=== PATIENT | male | born 1990 | race Caucasian/White ===

== ENCOUNTER 2021-10-04 01:43 | Emergency (ER) | payer OTHER, SELFPAY ==
[2021-10-04 01:49] VITALS: BP 124/75; PULSE 122; RESP 18; TEMP 36.9; O2SAT 96; BMI 21.5
--- NOTE | 2021-10-04 01:57 | XRR_ITS ---
PROCEDURE INFORMATION: Exam: XR Lumbosacral Spine Exam date and time: 10/04/2021 1:57 AM Age: 31 years old Clinical indication: Low back pain; Additional info: Low back pain, denies injury TECHNIQUE: Imaging protocol: XR of the lumbosacral spine. Views: 2 or 3 views. COMPARISON: CR Abdomen 2 views [id number] 10/09/2014 7:52 AM FINDINGS: Bones/joints: There is normal vertebral body alignment. There are normal vertebral body heights. Disc spaces are symmetric and maintained. No fracture. Soft tissues: Unremarkable. Gastrointestinal tract: There is moderate amount of formed stool in the colon without bowel dilation. XR/XR lumbar spine 2-3V* [id number] IMPRESSION: 1. No fracture. 2. Moderate constipation.
--- NOTE | 2021-10-04 01:59 | ED_ITS ---
HPI - Back Pain/Injury General: Chief Complaint: Back Pain/Injury Stated Complaint: Lower back pain, legs going numb Time Seen by Provider: 10/04/21 01:58 Source: patient Mode of arrival: ambulatory Limitations: no limitations History of Present Illness: HPI Narrative: 31-year-old male states that he has been having low back pain over the last 12 hours. He states it is mainly in the right lower back and radiates down his right leg but has some pain that radiates down both legs states at times he had some very slight numbness denies any bowel or bladder incontinence but some low-grade fevers along with body aches. Denies any recent injuries he denies any drug use. Associated symptoms: Reports chills; Deny abdominal pain, dysuria, nausea or vomiting Review of Systems Const: Reports: chills and body aches Eyes: Denies: blurry vision or eye discomfort ENMT: Denies: throat pain or dental pain Card: Denies: chest pain Resp: Denies: dyspnea GI: Denies: abdominal pain, nausea, vomiting or diarrhea : Denies: dysuria Musc: Reports: back pain Skin/Breast: Denies: rash Neuro: Denies: headache(s) Psych: Denies: depression Adrian/Lymph: Denies: easy bruising All/Imm: Denies: urticaria PFSH ED PFSH: Social History Smoking and tobacco status: never smoked Physical Exam Const: COMMON NORMALS: no acute distress, patient oriented x3 and healthy appearing HENMT: COMMON NORMALS: normocephalic and atraumatic HEAD & SCALP: normocephalic and atraumatic Eye: COMMON NORMALS: Equal, round and reactive pupils present and EOMs intact bilaterally PUPIL: Yes Equal, round and reactive pupils present Neck/C-Spine: COMMON NORMALS: full ROM and supple Chest: COMMONS NORMALS: normal inspection of the chest and normal palpation of entire chest wall Resp: COMMON NORMALS: normal respiratory effort, No retractions, No use of accessory muscles and clear to auscultation bilaterally AUSCULTATION: clear to auscultation bilaterally Cardio: COMMON NORMALS: regular rate, regular rhythm and No murmurs present (Cardio) RATE: regular rate RHYTHM: regular rhythm GI: COMMON NORMALS: Normal to inspection, nondistended, normoactive bowel sounds present, Soft to palpation, non-tender and no masses PALPATION: Yes Soft to palpation Back/Pelvis: OTHER: Paraspinal lumbar tenderness worse on the right no midline tenderness no saddle anesthesia no decreased strength of lower extremities Extremity: COMMON NORMALS: normal to inspection and full ROM Neuro: COMMON NORMALS: patient oriented x3, moves all extremities and no focal motor deficits Psych: COMMON NORMALS: mental status grossly normal, Normal thought process present and cooperative THOUGHT PROCESS: Normal thought process present Skin: COMMON NORMALS: no rashes or lesions noted and no wounds GENERAL SKIN EXAM: no rashes or lesions noted Course Vital Signs: Vital signs: Vital Signs Temperature 98.5 F 10/04/21 01:49 Pulse Rate 122 H 10/04/21 01:49 Respiratory Rate 16 10/04/21 02:10 Blood Pressure 124/75 10/04/21 01:49 Pulse Oximetry 96 10/04/21 01:49 MDM - Back Pain/Injury MDM Narrative: Medical decision making narrative: Patient presents here with low back pain likely muscular with sciatica he has no signs of cord compression or epidural abscess patient's x-ray here is normal he is stable for discharge is to follow-up with PCP and return if worsening. Will prescribe him Naprosyn Robaxin and steroid. Lab Data: Labs: Lab Results 10/04/21 10/04/21 02:00 02:00 Urine Color Yellow (Yellow) Urine Appearance Clear (CLEAR) Urine pH 5 (5-7) Ur Specific Gravit y 1.030 (1.005-1.030) Urine Protein Neg (Negative) Urine Glucose (UA) Norm (Normal) Urine Ketones 1+ H (Negative) Urine Blood Neg (Negative) Urine Nitrate Negative (Negative) Urine Bilirubin Neg (Negative) Urine Urobilinogen 1 mg/dL H mg/dL (Negative) Ur Leukocyte Kylie ase Negative (Negative) SARS-CoV-2 Ag (Rap id) Negative (Negative) Discharge Plan Discharge Patient Disposition: Home Clinical Impression: Low back pain Qualifiers: Chronicity: acute Back pain laterality: right Sciatica presence: with sciatica Sciatica laterality: sciatica of right side Qualified Code(s): M54.41 - Lumbago with sciatica, right side Condition: Stable Prescriptions: New methocarbamol 750 mg tablet 750 mg PO Q6H PRN (Reason: spasms) Qty: 20 RF: 0 Naprosyn 500 mg tablet 500 mg PO BID PRN (Reason: pain) Qty: 20 RF: 0 Medrol (Jacob) 4 mg tablets,dose pack See Rx Instructions .ROUTE .COMPLEX Qty: 21 RF: 0 No Action amoxicillin 400 mg/5 mL suspension for reconstitution 800 mg PO Q12H 10 Days Qty: 200 RF: 0 Discharge Orders: Discharge ED (Routine); Ordered 10/04/21 Ordered By: Shruthi Bell Discharge Diet: Advance as tolerated Discharge Activity: Resume usual activity Patient Instructions: Acute Low Back Pain (ED) Coding Level of Care Code ED Librarian Special Collections for Kobe Fwd Exam Comprehensive
[2021-10-04] MEDS: dexamethasone 10 mg/mL INJ IM (02:09)
[2021-10-04 02:10] VITALS: RESP 16
[2021-10-04] MEDS: morphine 4 mg/mL SDV 1 mL IM (02:10)
[2021-10-04 02:17] LABS: Add Urine Microscopic? NO; Charge for UA Resulting for Rev
[2021-10-04 02:20] LABS: Bilirubin Urine Neg (Negative); Blood Urine Neg (Negative); Glucose Urine UA Norm (Normal); Ketones Urine 1+ (Negative); Leukocyte Esterase Urine Negative (Negative); Nitrate Urine Negative (Negative); Protein Urine Neg (Negative); Urine Appearance Clear (CLEAR); Urine Color Yellow (Yellow); Urobilinogen Urine 1 mg/dL (Negative); pH Urine 5 (5-7)
[2021-10-04 02:36] LABS: SARS Covid-2 Antigen Negative (Negative)
[2021-10-04 02:57] VITALS: BP 110/77; PULSE 78; RESP 16; O2SAT 98
== END 2021-10-04 02:58 | disposition home or self-care (01) ==
PROVIDERS: Emergency Provider Emergency Medicine
DX: M54.41 Lumbago with sciatica, right side (principal); Z20.822 Contact with and (suspected) exposure to COVID-19
CPT/HCPCS: 72100; 81003; 87426; 96372; 99283; J1100; J2270

== ENCOUNTER 2024-03-06 19:34 | Emergency (ER) | payer SELFPAY ==
[2024-03-06 20:34] VITALS: BP 148/82; PULSE 64; RESP 18; TEMP 37; O2SAT 98; BMI 25.9
[2024-03-06 21:03] VITALS: PULSE 72; O2SAT 100
[2024-03-06] MEDS: HYDROcodone-APAP 7.5-325 mg/15 mL UDC 7.5 ML PO (21:19)
--- NOTE | 2024-03-06 21:30 | ED_ITS ---
HPI - Dental/Oral General: Chief complaint: Dental/Oral Stated complaint: lower left side pain Time Seen by Provider: 03/06/24 20:56 Source: patient Mode of arrival: ambulatory Limitations: no limitations History of Present Illness: Patient is a 33-year-old male presenting to the emergency department complaining of left lower dental pain onset past few days. Patient was diagnosed with a dental abscess yesterday and started on amoxicillin and steroids, but states Tylenol has not been controlling his pain. He does note in the past he has had dental abscesses that Tylenol usually works for. States he is just here for some extra pain control. Denies any fever, throat swelling/closing, or any other concerning symptoms at this time. He states he has an appointment with his dentist and once he gets insurance he is having all of his teeth removed. Onset (ago): day(s) Duration: constant Severity: severe Relieving factors: nothing Context: history of dental caries and poor dental care Associated symptoms: Denies ear or mastoid pain or fever(s) Review of Systems General: Reports: 10 or more systems reviewed and unremarkable except in HPI and below Const: Denies: fever(s), chills or fatigue Eyes: Denies: change in vision ENMT: Reports: dental pain; Denies: throat pain, ear or mastoid pain or nasal discharge Card: Denies: chest pain, palpitations, swelling of feet/ankles or lightheadedness Resp: Denies: dyspnea, productive cough or wheezing GI: Denies: abdominal pain, nausea, vomiting, diarrhea or constipation : Denies: flank pain, difficulty urinating, dysuria or urinary frequency Musc: Denies: neck pain, back pain or joint pain Skin/Breast: Denies: rash Neuro: Denies: headache(s), numbness in extremities or weakness in extremities PFSH ED PFSH: Medical History Dental abscess Dental caries associated with enamel hypomineralization Social History Smoking and tobacco/nicotine status: never used tobacco/nicotine Physical Exam Const: COMMON NORMALS: no acute distress and no limitations GENERAL APPEARANCE: cooperative, comfortable and well developed ORIENTATION/CONSCIOUSNESS: Yes awake HENMT: COMMON NORMALS: normocephalic, atraumatic and hearing grossly normal bilaterally HEAD & SCALP: normocephalic and atraumatic TEETH & GINGIVA: Yes caries, Yes multiple restorations and Yes poor dentition THROAT: posterior oropharynx normal and uvula midline OTHER: Soft tissue swelling noted to left lower face, is moderately tender to palpation Eye: COMMON NORMALS: Equal, round and reactive pupils present, EOMs intact bilaterally and conjunctivae normal CONJUNCTIVA: Yes conjunctivae normal PUPIL: Yes Equal, round and reactive pupils present Neck/C-Spine: COMMON NORMALS: full ROM, supple and no JVD Resp: COMMON NORMALS: normal respiratory effort, No retractions, No use of accessory muscles and clear to auscultation bilaterally AUSCULTATION: clear to auscultation bilaterally Cardio: COMMON NORMALS: no JVD, regular rate, regular rhythm, No clicks present (Cardio), No murmurs present (Cardio) and No rub (Cardio) RATE: regular rate RHYTHM: regular rhythm Skin: COMMON NORMALS: no rashes or lesions noted GENERAL SKIN EXAM: no rashes or lesions noted Course Vital Signs: Vital signs: Vital Signs Temperature 98.6 F 03/06/24 20:34 Pulse Rate 72 03/06/24 21:03 Respiratory Rate 18 03/06/24 20:34 Blood Pressure 148/82 03/06/24 20:34 Pulse Oximetry 100 03/06/24 21:03 Oxygen Delivery Me thod Room Air 03/06/24 21:03 MDM - Dental/Oral Medical Decision Making Patient began therapy for dental abscess yesterday with steroids and antibiotics. States pain is gotten to the point where Tylenol is not helping, request something stronger. He is given liquid Hycet here in the emergency depa rtment, as he states he cannot take pills. He will be sent prescription for Hycet to take for breakthrough pain, and will follow-up with dentist as already planned. There were no concerning signs on physical examination of any respiratory compromise. Return precautions were given. No radiology studies performed this visit Discharge Plan Discharge Patient Disposition: Home Clinical Impression: Dental abscess Condition: Stable Prescriptions: No Action amoxicillin 400 mg/5 mL suspension for reconstitution 800 mg PO Q12H 10 Days Qty: 200 0RF prednisolone 15 mg/5 mL solution 30 mg PO DAILY 5 Days Qty: 50 0RF Discharge Orders: Discharge ED (Routine); Ordered 03/06/24 Ordered By: Kannan Baez Discharge Diet: Usual diet Discharge Activity: Increase activity as tolerated Patient Instructions: Dental Abscess (ED) Activity Restrictions/Additional Instructions: Pain medications as prescribed. Please follow-up with dentist and continue taking your antibiotics and steroids. Return with any new or worsening symptoms. Coding Level of Care Code ED Director Of Dementia Operations for Kobe Carter
== END 2024-03-06 21:34 | disposition home or self-care (01) ==
PROVIDERS: Emergency Provider Physician Assistant
DX: K04.7 Periapical abscess without sinus (principal)
CPT/HCPCS: 99283

== ENCOUNTER → 2024-06-09 18:17 | Outpatient (BNVA) | payer OTHER, SELFPAY | DX: R30.0 Dysuria (principal) | CPT/HCPCS: 81000 ==

== ENCOUNTER 2024-10-06 07:20 | Emergency (ER) | payer BC, OTHER, SELFPAY ==
[2024-10-06 07:26] VITALS: BP 134/87; PULSE 96; RESP 18; TEMP 36.8; O2SAT 98
--- NOTE | 2024-10-06 07:50 | W.ED.MALEGU ---
HPI - Male Genitourinary General: Chief complaint: Urogenital-Male Stated complaint: lower back pain Time Seen by Provider: 10/06/24 07:39 History of Present Illness: 34-year-old male presents emergency room complaining of right lower quadrant pain and flank pain. He has had some dysuria urgency and frequency. He is also had some drainage. He was seen previously tested for STDs they were negative. He has not had any fever sweats chills. No history of nephrolithiasis he has not previously had any significant abdominal surgeries. Denies any recent unprotected sexual intercourse or new partners. Associated symptoms: Reports dysuria Related Data Home Medications Medication Instructions Recorded Confirmed phenazopyridine 95 mg tablet 95 mg PO TID PRN urinary pain 10/06/24 10/06/24 Previous Rx's Medication Instructions Recorded ciprofloxacin 500 mg/5 mL oral 500 mg (5 mL) PO BID 10 days #100 10/06/24 suspension (Cipro) mL promethazine 25 mg tablet 25 mg PO Q6H PRN nausea and 10/06/24 vomiting #20 tabs Allergies Allergy/AdvReac Type Severity Reaction Status Date / Time No Known Allergies Allergy Verified 06/09/24 16:47 Review of Systems Const: Denies: fever(s) or chills Card: Denies: chest pain Resp: Denies: dyspnea GI: Reports: abdominal pain : Reports: flank pain, dysuria, urinary frequency and urinary urgency Musc: Denies: neck pain or back pain Skin/Breast: Denies: rash PFSH ED PFSH: Medical History Dental abscess Dental caries associated with enamel hypomineralization Social History Smoking and tobacco/nicotine status: never used tobacco/nicotine Physical Exam Const: COMMON NORMALS: no acute distress GENERAL APPEARANCE: cooperative and comfortable ORIENTATION/CONSCIOUSNESS: Yes awake, Yes oriented to person, Yes oriented to place and Yes oriented to time HENMT: COMMON NORMALS: normocephalic, atraumatic and hearing grossly normal bilaterally HEAD & SCALP: normocephalic and atraumatic Resp: COMMON NORMALS: normal respiratory effort, No retractions, No use of accessory muscles and clear to auscultation bilaterally AUSCULTATION: clear to auscultation bilaterally Cardio: COMMON NORMALS: regular rate, regular rhythm and No murmurs present (Cardio) RATE: regular rate RHYTHM: regular rhythm GI: COMMON NORMALS: Soft to palpation and No hepatosplenomegaly present AUSCULTATION: Yes normoactive bowel sounds PALPATION: Yes Soft to palpation, No Tenderness to palpation present (GI), No Guarding due to palpation present (GI) and Yes No hepatosplenomegaly present : BLADDER/KIDNEY EXAM: Yes CVA tenderness Back/Pelvis: GENERAL BACK: Yes CVA tenderness CVA tenderness: right Extremity: COMMON NORMALS: normal to inspection, capillary refill normal, no clubbing, cyanosis or edema, no calf tenderness and no pedal edema Neuro: SENSORIUM/ORIENTATION: Yes oriented to person, Yes oriented to place and Yes oriented to time Skin: COMMON NORMALS: no rashes or lesions noted GENERAL SKIN EXAM: no rashes or lesions noted Course Vital Signs: Vital signs: Vital Signs Temperature 98.2 F 10/06/24 07:26 Pulse Rate 85 10/06/24 11:11 Respiratory Rate 18 10/06/24 08:21 Blood Pressure 135/76 10/06/24 11:11 Pulse Oximetry 99 10/06/24 11:11 Oxygen Delivery Me thod Room Air 10/06/24 07:59 MDM - Male Medical Decision Making Patient has cystitis early pyelonephritis. No nephrolithiasis. White count [address] does not show any significant abnormality in the region of the appendix no acute appendicitis will discharge patient home on oral antibiotics follow-up with primary care. Medical Records I reviewed the patient's medical records. Lab Data I reviewed the patient's lab results. 10/06/24 07:56 10/06/24 07:56 Radiology Impressions Abdomen/Pelvis CT 10/06/24 08:39 IMPRESSION: 1. No acute findings. 2. Nonspecific, minimally prominent bilateral inguinal lymph nodes noted. Correlate clinically for infection/inflammation. Further evaluations or follow-up as clinically indicated. Laboratory Results WBC 12.35 10^3/uL (3.29-11.43) H 10/06/24 07:56 RBC 5.14 10^6/uL (3.85-5.65) 10/06/24 07:56 Hgb 14.60 g/dL (11.27-16.99) 10/06/24 07:56 Hct 44.9 % (37-53) 10/06/24 07:56 MCV 87.4 fl (82-101) 10/06/24 07:56 MCH 28.4 pg (27-33) 10/06/24 07:56 MCHC 32.5 g/dL (30-55) 10/06/24 07:56 RDW 11.9 % (12.1-15.1) L 10/06/24 07:56 Plt Count 279 10^3/cmm (157-399) 10/06/24 07:56 MPV 9.5 fL (7.4-10.4) 10/06/24 07:56 Neut % (Auto) 74.4 % 10/06/24 07:56 Lymph % (Auto) 16.5 % 10/06/24 07:56 Love % (Auto) 7.5 % 10/06/24 07:56 Eos % (Auto) 0.9 % 10/06/24 07:56 Baso % (Auto) 0.4 % 10/06/24 07:56 Neut # (Auto) 9.18 10^3/uL (1.8-7.7) H 10/06/24 07:56 Lymph # (Auto) 2.0 10^3/uL (0.8-4.8) 10/06/24 07:56 Love # (Auto) 0.9 10^3/uL (0.2-0.9) 10/06/24 07:56 Eos # (Auto) 0.1 10^3/uL (0.0-0.8) 10/06/24 07:56 Baso # (Auto) 0.1 10^3/uL (0.0-0.1) 10/06/24 07:56 Nucleated RBC % (auto) 0 % 10/06/24 07:56 Nucleated RBCs # 0.0 /100WBC 10/06/24 07:56 Sodium 137 mmol/L (136-145) 10/06/24 07:56 Potassium 4.0 mmol/L (3.5-5.1) 10/06/24 07:56 Chloride 100 mmol/L (98-107) 10/06/24 07:56 Carbon Dioxide 28 mmol/L (22-29) 10/06/24 07:56 Anion Gap 13.0 (5-19) 10/06/24 07:56 BUN 7 mg/dL (6-20) 10/06/24 07:56 Creatinine 0.8 mg/dL (0.7-1.2) 10/06/24 07:56 GFR Calculation 110.0 mL/min (90-130) 10/06/24 07:56 Glucose 118 mg/dL (65-115) H 10/06/24 07:56 Calculated Osmolality 283 mOsm/kg (285-295) L 10/06/24 07:56 Calcium 9.0 mg/dL (8.5-10.5) 10/06/24 07:56 Total Bilirubin 0.7 mg/dL (0.15-1.2) 10/06/24 07:56 AST 20 U/L (0-40) 10/06/24 07:56 ALT 19 U/L (0-41) 10/06/24 07:56 Alkaline Phosphatase 100 U/L (40-130) 10/06/24 07:56 Total Protein 7.0 g/dL (6.6-8.7) 10/06/24 07:56 Albumin 4.1 g/dL (3.5-5.2) 10/06/24 07:56 Globulin 2.9 g/dL (1.3-4.6) 10/06/24 07:56 Urine Color Dark yellow (Yellow) A 10/06/24 07:56 Urine Appearance Turbid (CLEAR) A 10/06/24 07:56 Urine pH 6.5 (5-7) 10/06/24 07:56 Ur Specific [place] 1.033 (1.005-1.030) H 10/06/24 07:56 Urine Protein 2+ (Negative) A 10/06/24 07:56 Urine Glucose (UA) Negative (Normal) 10/06/24 07:56 Urine Ketones Trace (Negative) 10/06/24 07:56 Urine Blood 2+ (Negative) A 10/06/24 07:56 Urine Nitrate Negative (Negative) 10/06/24 07:56 Urine Bilirubin 1+ (Negative) H 10/06/24 07:56 Urine Urobilinogen 1.0 mg/dL (Negative) 10/06/24 07:56 Ur Leukocyte Esterase 2+ (Negative) A 10/06/24 07:56 Urine RBC 21-50 /hpf (0-2) H 10/06/24 07:56 Urine WBC >100 /hpf (0-5) H 10/06/24 07:56 Ur Squamous Epith Cells 0-5 /hpf (0-5) 10/06/24 07:56 Amorphous Sediment Not Reportable 10/06/24 07:56 Urine Bacteria None seen /hpf (NONE) 10/06/24 07:56 Hyaline Casts 2.66 /lpf 10/06/24 07:56 C. trachomatis (PCR) Not detected 10/06/24 07:56 N. gonorrhoeae (PCR) Detected 10/06/24 07:56 All radiology interpretation(s) finalized by discharge Discharge Plan Discharge Patient Disposition: Home Clinical Impression: Urinary tract infection Condition: Stable Prescriptions: New ciprofloxacin [Cipro] 500 mg/5 mL suspension,microcapsule recon 500 mg PO BID 10 Days Qty: 100 0RF promethazine 25 mg tablet 25 mg PO Q6H PRN (Reason: nausea and vomiting) Qty: 20 0RF No Action phenazopyridine [Azo] 95 mg Tablet 95 mg PO TID PRN (Reason: urinary pain) Discharge Orders: Discharge ED (Routine); Ordered 10/06/24 Ordered By: eSrgey Lofton Discharge Diet: Usual diet Discharge Activity: Increase activity as tolerated Patient Instructions: Urinary Tract Infection in Men (ED), Opioid Safety, Pain Management Activity Restrictions/Additional Instructions: Thank you for choosing [facility] for your healthcare needs today. It is very important that you follow up as instructed or that you return to the Emergency Department should you have concerns or if your condition changes or worsens in any way. You are seen in the emergency room for abdominal pain flank pain with signs of urinary tract infection. Lab test confirmed a urinary tract infection. There is no sign of kidney stone or abscess. You are given initial dose of antibiotics in the emergency room start oral antibiotics tomorrow for 10 days. Coding Level of Care Code ED Operations Tech for Kobe Carter
[2024-10-06 07:59] VITALS: BP 134/87; PULSE 92; O2SAT 95
[2024-10-06 08:06] LABS: Basophils # 0.1 10^3/uL (0.0-0.1); Basophils % 0.4 %; Eosinophils # 0.1 10^3/uL (0.0-0.8); Eosinophils % 0.9 %; Hematocrit 44.9 % (37-53); Lymphocytes % 16.5 %; Mean Corpuscular HGB Conc 32.5 g/dL (30-55); Mean Corpuscular Hemoglobin 28.4 pg (27-33); Mean Corpuscular Volume 87.4 fl (82-101); Mean Platelet Volume 9.5 fL (7.4-10.4); Monocytes # 0.9 10^3/uL (0.2-0.9); Monocytes % 7.5 %; Neutrophils # 9.18 10^3/uL (1.8-7.7); Neutrophils % 74.4 %; Nucleated Red Blood Cells % 0 %; Platelet Count 279 10^3/cmm (157-399); Red Blood Count 5.14 10^6/uL (3.85-5.65); Red Cell Distribution Width 11.9 % (12.1-15.1); White Blood Count 12.35 10^3/uL (3.29-11.43)
[2024-10-06 08:18] LABS: Bilirubin Urine 1+ (Negative); Blood Urine 2+ (Negative); Glucose Urine UA Negative (Normal); Ketones Urine Trace (Negative); Leukocyte Esterase Urine 2+ (Negative); Nitrate Urine Negative (Negative); Protein Urine 2+ (Negative); Urine Appearance Turbid (CLEAR); Urine Color Dark Yellow (Yellow); pH Urine 6.5 (5-7)
[2024-10-06 08:21] VITALS: BP 134/97; PULSE 90; RESP 18; O2SAT 99
[2024-10-06 08:28] LABS: Alanine Aminotransferase 19 U/L (0-41); Albumin Level 4.1 g/dL (3.5-5.2); Alkaline Phosphatase 100 U/L (40-130); Aspartate Amino Transferase 20 U/L (0-40); Blood Urea Nitrogen 7 mg/dL (6-20); Carbon Dioxide 28 mmol/L (22-29); Chloride 100 mmol/L (98-107); Creatinine Clr Calc Pharmacy 136.0705; Globulin 2.9 g/dL (1.3-4.6); Glucose 118 mg/dL (65-115); Osmolality Calculated 283 mOsm/kg (285-295); Sodium 137 mmol/L (136-145); Total Bilirubin 0.7 mg/dL (0.15-1.2)
[2024-10-06 08:32] LABS: Add Urine Microscopic? YES; Bacteria Urine None Seen /hpf; Hyaline Casts Urine 2.66 /lpf; RBC Urine 21-50 /hpf (0-2); Squamous Epithelial Cell Urine 0-5 /hpf (0-5); WBC Urine >100 /hpf (0-5)
[2024-10-06 08:36] LABS: Add Urine Culture? Yes; Specific Gravity, Urine 1.033 (1.005-1.030)
--- NOTE | 2024-10-06 08:39 | CTR_ITS ---
PROCEDURE INFORMATION: Exam: CT Abdomen And Pelvis Without Contrast Exam date and time: 10/06/2024 8:46 AM Age: 34 years old Clinical indication: Abdominal pain; Localized; Right lower quadrant (rlq); Additional info: Flank pain TECHNIQUE: Imaging protocol: Computed tomography of the abdomen and pelvis without contrast. Radiation optimization: All CT scans at this facility use at least one of these dose optimization techniques: automated exposure control; mA and/or kV adjustment per patient size (includes targeted exams where dose is matched to clinical indication); or iterative reconstruction. COMPARISON: CR XR lumbar spine 2-3V* [id number] 10/04/2021 2:24 AM RADIATION DOSE METRICS: Total DLP (mGy-cm): 425.26 FINDINGS: Lungs: Lung bases are clear as visulized. Liver: Unremarkable. Gallbladder and biliary ducts: Unremarkable Pancreas: Unremarkable Spleen: Normal. No splenomegaly. Adrenal glands: Normal. Kidneys and ureters: Normal. No hydronephrosis. Stomach and bowel: Moderate volume stool in the ascending, transverse and descending colon noted. No obstruction. No acute inflammation. Appendix: No evidence of appendicitis. Intraperitoneal space: No free air. No significant fluid collection. Vasculature: Unremarkable. No abdominal aortic aneurysm. Lymph nodes: Minimally prominent bilateral inguinal lymph nodes noted, measuring up to 1 cm. Urinary bladder: Unremarkable as visualized. Reproductive: Unremarkable as visualized. Bones/joints: No acute fracture. Soft tissues: Unremarkable. CT/CT kidney stone [id number] IMPRESSION: 1. No acute findings. 2. Nonspecific, minimally prominent bilateral inguinal lymph nodes noted. Correlate clinically for infection/inflammation. Further evaluations or follow-up as clinically indicated.
[2024-10-06 09:26] VITALS: PULSE 87; O2SAT 98
[2024-10-06 09:52] LABS: Chlamydia Trachomatis NOT DETECTED; Neisseria Gonorrhea DETECTED
[2024-10-06] MEDS: cefTRIAXone 2,000 mg SDV 2000 MG IVP (10:39)
[2024-10-06 11:11] VITALS: BP 135/76; PULSE 85; O2SAT 99
== END 2024-10-06 11:12 | disposition home or self-care (01) ==
PROVIDERS: Emergency Provider Family Medicine
DX: N39.0 Urinary tract infection, site not specified (principal)
CPT/HCPCS: 36415; 74176; 80053; 81001; 85025; 87040; 87086; 87210; 87491; 87591; 96374; 99285; J0696